=== PATIENT | female | born 1950 | race Caucasian/White ===

== ENCOUNTER 2019-02-01 10:47 | Day surgery (SDC) | payer MEDICARE, BC ==
[2019-02-01] MEDS: Dextrose 5%-Lactated Ringers 1,000 ML IV SCH (11:19)
[2019-02-01] MEDS ORDERED: Midazolam 1 MG/ML 2 ML SDV ONE (11:29)
[2019-02-01] MEDS ORDERED: fentaNYL 100 MCG/2 ML SDV ONE (11:29)
[2019-02-01] MEDS ORDERED: Propofol 200 MG/20 ML SDV ONE (11:29)
--- NOTE | 2019-02-02 14:04 | OR ---
DATE OF PROCEDURE: 02/01/2019 SURGEON: Ross Sánchez MD PREOPERATIVE DIAGNOSIS: Indication for screening colonoscopy with history of colon polyps. POSTOPERATIVE DIAGNOSES: 1. Minimal left-sided diverticulosis. 2. No recurrent polyps. OPERATIVE PROCEDURE: Flexible colonoscopy. ANESTHESIA: IV sedation. INDICATION FOR PROCEDURE: This is a 68-year-old presenting for a followup screening colonoscopy. She does have history of previous colonic polyps and is in a 5-year followup regimen. The plan is to proceed with a colonoscopy with biopsies and/or polypectomy as indicated. Potential risks including bleeding and perforation were discussed, and the patient wishes to proceed. DETAILS OF PROCEDURE: The patient taken to the operating room and placed in a left lateral decubitus position. IV sedation was administered after which the initial digital rectal exam was performed, was unremarkable. The colonoscope was then passed to the level of the cecum. Retroflexion in the rectum revealed uncomplicated hemorrhoidal columns. Otherwise, the patient had only a few scattered diverticula on the left side of the colon which were otherwise uncomplicated. Apart from that, there were no areas of colitis. No polyps or other signs of neoplasia. The prep was very good. The scope was then withdrawn, the above findings reconfirmed, and the procedure concluded. The patient was taken to the recovery room in satisfactory condition. The recommendation would be to repeat the colonoscopy in 5 years. Ross Sánchez MD /[id number]
== END 2019-02-01 13:44 | disposition home or self-care (01) ==
LOC: JP.SDS 10:47
PROVIDERS: ATTEND Surgery
DX: Z12.11 Encounter for screening for malignant neoplasm of colon (principal); K57.30 Diverticulosis of large intestine without perforation or abscess without bleeding; K64.9 Unspecified hemorrhoids; K21.9 Gastro-esophageal reflux disease without esophagitis; M19.90 Unspecified osteoarthritis, unspecified site; Z86.010 Personal history of colon polyps
CPT/HCPCS: G0121; J2250; J2704; J3010; J7042

== ENCOUNTER 2024-02-25 06:53 | Day surgery (SDC) | payer MEDICARE, BC ==
[2024-02-25] MEDS ORDERED: fentaNYL 100 MCG/2 ML SDV ONE (07:43)
[2024-02-25] MEDS ORDERED: Propofol 200 MG/20 ML SDV ONE ×2 (07:43→10:33)
[2024-02-25] MEDS: Lactated Ringers 1,000 ML IV SCH (07:47)
== END 2024-02-25 12:55 | disposition home or self-care (01) ==
LOC: JP.SDS 06:53
PROVIDERS: ATTEND Surgery
DX: Z12.11 Encounter for screening for malignant neoplasm of colon (principal); R13.10 Dysphagia, unspecified; K57.30 Diverticulosis of large intestine without perforation or abscess without bleeding; K44.9 Diaphragmatic hernia without obstruction or gangrene; I10 Essential (primary) hypertension; E11.9 Type 2 diabetes mellitus without complications; K21.9 Gastro-esophageal reflux disease without esophagitis
CPT/HCPCS: 43235; G0121; J2704; J3010; J7120